=== PATIENT | female | born 1940 | race Two or more races ===

== ENCOUNTER → 2022-08-31 | Day surgery (SDC) | payer OTHER ==
[~2022-08-31] MED LIST: ALEVE220 M1 PO; ARICEPT10 MG PO; DITROPAN XL10 MG PO; DUI500 PO; LEVO-T100 MCG PO; LIPITOR20 MG PO; LORAZEPAM0.5 MG PO; NABUMETONE750 MG PO; PERCOCET 5-3251 EACH PO; ZOLOFT100 MG PO
== END | disposition home or self-care (01) ==
LOC: CIR.AMB 07:00
PROVIDERS: ATTEND Orthopaedic Surgery
DX: S52.501A Unspecified fracture of the lower end of right radius, initial encounter for closed fracture (principal); S52.691A Other fracture of lower end of right ulna, initial encounter for closed fracture; M81.0 Age-related osteoporosis without current pathological fracture; I10 Essential (primary) hypertension; Z20.822 Contact with and (suspected) exposure to COVID-19
CPT/HCPCS: 25609; 20902; 25101; 25652; L8690